=== PATIENT | female | born 1990 | race American Indian/Alaskan Native ===

== ENCOUNTER 2019-03-11 06:18 | Inpatient (IN) | payer MEDICAID, OTHER ==
[2019-03-11] MEDS ORDERED: LACTATED RINGERS 1,000 ML ONE (08:43)
[2019-03-11 08:48] LABS: Hemoglobin 12.1 gm/dl (10.1-14.3); Mean Corpuscular HGB Conc 34 % (30-34); Mean Corpuscular Volume 94 fl (79-97); Platelet Count 311 K/mm3 (140-440); Red Blood Count 3.84 M/mm3 (3.65-5.03)
[2019-03-11] MEDS: LACTATED RINGERS 1,000 ML IV SCH ×3 (08:49→10:53)
[2019-03-11] MEDS ORDERED: AMPICILLIN/NS 2 GM/100 ML 2 GM/100 ML BAG IV ONE (09:00)
[2019-03-11] MEDS ORDERED: SUBLIMAZE ONE (09:16)
--- NOTE | 2019-03-11 09:17 | History and Physical Report ---
History of Present Illness Date of examination: 03/11/19 Date of admission: 03/11/19 08:31 Chief complaint: SIUP at 40 weeks and 3 days in active labor. History of present illness: Patient is a 28 year old , LMP , EDC 03/08/19 at 40 weeks and 3 days gestation who presented to triage complaining of having contractions since about 3 AM. She denies any fluid leakage or bleeding. She reports good movement. In triage, she had one late deceleration which recovered to normal baseline of 140 bpm and good olhy-ct-lueh variability. tracing has since been reactive. Cervix: 4 cm/100%/-1 to -2. AROM performed, + meconium fluid. She is a patient of [facility]. Her records are not available. She denies any medical history. GBS unknown. Past History Past Surgical History: no surgical history Family/Genetic History: none Social history: no significant social history - Obstetrical History Expected Date of Delivery: 03/08/19 Actual Gestation: 40 Week(s) 3 Day(s) : 2 Para: 1 Number of Living Children: 1 Medications and Allergies Allergies Allergy/AdvReac Type Severity Reaction Status Date / Time No Known Allergies Allergy Verified 08/31/18 22:07 Home Medications Medication Instructions Recorded Confirmed Last Taken Type Ondansetron [Zofran Odt] 4 mg PO Q8H PRN #15 tab.rapdis 09/01/18 03/11/19 Unknown Rx Vit-Fe Fumar-FA [ 1 tab PO QDAY MDD 1 03/11/19 03/11/19 03/10/19 09:00 History Vitamin] 325 Active Meds: Active Medications Lactated Ringer's (Lactated Ringers) 1,000 mls @ 125 mls/hr IV DIRECT RAFAEL Last Admin: 03/11/19 08:49 Dose: 125 mls/hr Documented by: Ampicillin Sodium (Polycillin/Ns 2 Gm/100 Ml) 2 gm in 100 mls @ 100 mls/hr IV ONCE ONE; Protocol Stop: 03/11/19 09:59 Last Admin: 03/11/19 08:49 Dose: 100 mls/hr Documented by: - Vital Signs Vital signs: Vital Signs Temp Pulse BP 97.5 F L 90 117/67 03/11/19 06:38 03/11/19 06:38 03/11/19 06:38 Temp Pulse Resp BP Pulse Ox 97.5 F L 97 H 117/67 97 03/11/19 06:38 03/11/19 08:06 03/11/19 06:38 03/11/19 08:06 - Physical Exam Cardiovascular: Normal S1, Normal S2 Lungs: Positive: Clear to auscultation Vulva: both: normal Adnexa: both: normal Deep Tendon Reflex Grade: Normal +2 - Obstetrical FHR: category 1 Uterine Contraction Monitor Mode: External Cervical Dilatation: 4 Cervical Effacement Percentage: 100 station: -1 Uterine Contraction Pattern: Regular Uterine Contraction Intensity: Strong/Firm Results Result Diagrams: 03/11/19 08:30 Abnormal lab results 03/11/19 Range/Units 08:30 WBC 13.2 H (4.5-11.0) K/mm3 All other labs normal. Assessment and Plan - Patient Problems (1) 40 weeks gestation of Current Visit: Yes Status: Acute (2) Active labor Current Visit: Yes Status: Acute Plan to address problem: Admit to labor floor. IV hydration. Routine admitting and labs. IV ampicillin for GBS prophylaxis. and toco monitoring. Anticipate . (3) GBS screening not performed Current Visit: Yes Status: Acute Plan to address problem: IV ampicillin. (4) Meconium in amniotic fluid Current Visit: Yes Status: Acute
[2019-03-11] MEDS ORDERED: PITOCin/NS 30 UNIT/500ML 30 UNITS/500 ML BAG IV SCH (10:00)
[2019-03-11] MEDS ORDERED: LACTATED RINGERS 1,000 ML IV SCH (10:00)
[2019-03-11] MEDS ORDERED: PITOCin/NS 20 UNIT/1000ML DRIP 20 UNITS/1,000 ML BAG IV SCH (10:00)
--- NOTE | 2019-03-11 10:29 | Anesthesia Consultation ---
Anesthesia Consult and Med Hx Date of service: 03/11/19 - Airway Anesthetic Teeth Evaluation: Good ROM Head & Neck: Adequate Mental/Hyoid Distance: Adequate Mallampati Class: Class II Intubation Access Assessment: Probably Good - Pulmonary Exam CTA: Yes - Cardiac Exam Cardiac Exam: RRR - Pre-Operative Health Status ASA Pre-Surgery Classification: ASA2 Proposed Anesthetic Plan: Epidural, Spinal - Pulmonary Hx Smoking: No Hx Asthma: No Hx Respiratory Symptoms: No SOB: No COPD: No Home Oxygen Therapy: No Hx Pneumonia: No Hx Sleep Apnea: No - Cardiovascular System Hx Hypertension: No Hx Coronary Artery Disease: No Hx Heart Attack/AMI: No Hx Angina: No Hx Percutaneous Transluminal Coronary Angioplasty (PTCA): No Hx Cardia Arrhythmia: No Hx Pacemaker: No Hx Internal Defibrillator: No Hx Valvular Heart Disease: No Hx Heart Murmur: No Hx Peripheral Vascular Disease: No - Central Nervous System Hx Neuromuscular Disorder: No Hx Seizures: No CVA: No Hx Back Pain: Yes Hx Psychiatric Problems: No - Gastrointestinal Hx Ulcer: No Hx Gastroesophageal Reflux Disease: Yes - Endocrine Hx Renal Disease: No Hx End Stage Renal Disease: No Hx Cirrhosis: No Hx Liver Disease: No Hx Insulin Dependent Diabetes: No Hx Non-Insulin Dependent Diabetes: No Hx Thyroid Disease: No Hx Hypothyroidism: No Hx Hyperthyroidism: No - Hematic Hx Anemia: No Hx Sickle Cell Disease: No - Other Systems Hx Alcohol Use: No Hx Substance Use: No Hx Cancer: No
--- NOTE | 2019-03-11 10:29 | Anesthesia Day of Surgery ---
Anesthesia Day of Surgery - Day of Surgery Patient Examined: Yes Patient H&P Reviewed: Yes Patient is NPO: Yes Beta Blockers: No Cardiac Clearance: No Pulmonary Clearance: No Alexander's Test: N/A
[2019-03-11] MEDS ORDERED: fentaNYL-BUPIV 2 MCG/ML-0.125% 200 MCG/100 ML BAG EPIDURAL SCH (10:30)
[2019-03-11] MEDS ORDERED: NARCAN 2 MG/2 ML IV PRN (10:30)
[2019-03-11] MEDS ORDERED: ZOFRAN IV PRN ×2 (10:30→13:12)
[2019-03-11] MEDS ORDERED: MINERAL OIL PO PRN (10:30)
[2019-03-11] MEDS ORDERED: XYLOCAINE 2% INFILTRATI NR (10:30)
--- NOTE | 2019-03-11 10:30 | Post Anesthesia Evaluation ---
- Post Anesthesia Evaluation Patient Participated: Yes Airway Patent: Yes Stable Respiratory Function: Yes Nausea/Vomiting: No Temp > 96.8F: Yes Pain Manageable: Yes Adequeate Hydration: Yes Anesthesia Complications: No Block Receding Appropriately: Yes Patient on Ventilator: No
[2019-03-11] MEDS ORDERED: BRETHINE IVP PRN (11:30)
[2019-03-11] MEDS ORDERED: BRETHINE SUB-Q PRN (11:30)
--- NOTE | 2019-03-11 13:07 | Procedure Note ---
OB Delivery Note - Delivery Date of Delivery: 03/11/19 (12:27) Surgeon: SEBASTIAN PENALOZA (JIMMIE) Estimated blood loss: 200cc - Vaginal Delivery presentation: vertex Delivery position: OA Intrapartum events: meconium (Light) Delivery induction: none Delivery monitor: external FHT, external uterine Route of delivery: (12:27) Delivery placenta: spontaneous (12:33) Delivery cord: 3 umbilical vessels Episiotomy: none Delivery laceration: other (small left periurethral ) Delivery repair: vicryl (2-0 SH) Anesthesia: epidural Delivery comments: viable male BELEN position over intact perineum at 12:27. NICU and RT present at RW d/t light meconium. Immediate spontaneous lust cry noted. Vigorous placed [id number] on maternal abdomen. Delayed cord clamping, cut by FOB with my guidance. Cord blood collected. Spontaneous rodriguez delivery of intact placenta at 12:33. FF@U-2. Bleeding small. Left periurethral lacer ation repaired with 2-0 Vicryl on SH under epidural anesthesia. Pt tolerated well. EBL 200cc. Infant and mother left in stable condition in L&D. - Infant A at 1 minute: 8 at 5 minutes: 9 Infant Gender: Male (3921 grams, 8lbs 10oz, 20")
[2019-03-11] MEDS ORDERED: PHENERGAN PR PRN (13:12)
[2019-03-11] MEDS ORDERED: TYLENOL PO PRN (13:12)
[2019-03-11] MEDS ORDERED: BENADRYL PO PRN (13:12)
[2019-03-11] MEDS ORDERED: MILK OF MAGNESIA PO PRN (13:12)
[2019-03-11] MEDS ORDERED: LANSINOH TP PRN (13:12)
[2019-03-11] MEDS ORDERED: TUCKS PAD TP PRN (13:12)
[2019-03-11] MEDS ORDERED: NORCO 5/325 PO PRN (13:12)
[2019-03-11] MEDS ORDERED: PHENERGAN PO PRN (13:12)
[2019-03-11] MEDS ORDERED: DULCOLAX PR PRN (13:12)
[2019-03-11] MEDS ORDERED: SODIUM CHLORIDE FLUSH SYRINGE 10 ML IV SCH (14:00)
[2019-03-11] MEDS: IBUPROFEN PO SCH ×2 (18:00→23:14)
[2019-03-12 01:04] LABS: Hematocrit 30.2 % (30.3-42.9)
[2019-03-12] MEDS: IBUPROFEN PO SCH ×2 (05:23→13:58)
--- NOTE | 2019-03-12 09:02 | Progress Note ---
Assessment and Plan - Patient Problems (1) Status post normal vaginal delivery Current Visit: Yes Status: Acute Plan to address problem: PPD 1 - stable Continue routine PP orders Discharge to home later today Follow up at [facility] as needed or in 6 weeks for exam (2) Anemia due to blood loss, acute Current Visit: Yes Status: Acute Plan to address problem: Asymptomatic Iron therapy initiated Subjective - Subjective Date of service: 03/12/19 Principal diagnosis: PPD #1; s/p Interval history: see H&P and OB Delivery Procedure Note Patient reports: appetite normal, voiding normally, pain well controlled, ambulating normally, no dizzy ambulation [place]: doing well, nursing well Objective - Vital Signs Latest vital signs: Vital Signs Temp Pulse Resp BP BP Pulse Ox 03/12/19 05:23 20 03/11/19 23:38 98.5 F 83 20 102/50 98 03/11/19 23:14 20 03/11/19 19:53 98.6 F 101 H 20 103/55 97 03/11/19 19:49 98.6 F 102 H 20 98/48 97 03/11/19 18:00 18 03/11/19 16:29 98.3 F 97 H 18 107/50 97 03/11/19 14:20 98.9 F 71 20 113/78 03/11/19 13:52 82 121/59 03/11/19 13:42 88 119/58 03/11/19 13:27 86 111/58 03/11/19 13:12 96 H 108/55 03/11/19 12:57 94 H 108/57 03/11/19 12:51 90 112/55 03/11/19 12:43 85 113/53 03/11/19 12:28 112 H 132/88 03/11/19 12:13 100 H 128/88 03/11/19 12:04 108 H 98 03/11/19 11:59 96 H 99 03/11/19 11:57 92 H 111/61 03/11/19 11:54 101 H 99 03/11/19 11:49 100 H 99 03/11/19 11:44 97 H 113/55 03/11/19 11:43 98 H 100 03/11/19 11:39 95 H 100 03/11/19 11:33 99 H 100 03/11/19 11:29 84 126/60 100 05 11:24 99 H 100 05 11:19 97 H 100 05 11:15 98.8 F 16 03/11/19 11:14 92 H 100 05 11:13 93 H 122/59 03/11/19 11:09 84 100 03/11/19 11:04 85 100 05 10:59 83 115/53 100 03/11/19 10:54 86 100 03/11/19 10:49 91 H 100 05 10:44 85 109/56 100 03/11/19 10:39 85 100 03/11/19 10:34 89 100 03/11/19 10:29 77 100 03/11/19 10:26 95 H 104/61 03/11/19 10:25 100 H 115/54 03/11/19 10:24 83 99 03/11/19 10:22 90 126/64 03/11/19 10:20 99 H 104/58 03/11/19 10:19 95 H 100 03/11/19 10:18 96 H 105/60 03/11/19 10:16 93 H 110/59 03/11/19 10:14 110 H 103/57 100 03/11/19 10:12 103 H 95/61 03/11/19 10:10 106 H 123/63 03/11/19 10:09 107 H 99 03/11/19 10:08 103 H 128/67 03/11/19 10:06 106 H 125/66 03/11/19 10:04 105 H 122/71 98 03/11/19 10:02 104 H 126/72 03/11/19 10:00 106 H 124/76 03/11/19 09:58 98 H 126/75 99 03/11/19 09:56 100 H 135/85 05 09:54 101 H 139/88 03/11/19 09:53 103 H 100 03/11/19 09:52 104 H 127/90 03/11/19 09:50 105 H 124/71 03/11/19 09:48 108 H 100 Intake and Output 03/11/19 03/12/19 05 23:59 07:59 15:59 Intake Total 240 Output Total 1600 Balance -1600 240 Intake: Oral 240 Output: Urine 1600 Void 1600 Other: Total, Intake Amount 240 Total, Output Amount 750 # Voids Void 1 1 - Exam Abdomen: Present: normal appearance, soft Vulva: both: laceration/episiotomy (well approximated) Uterus: Present: normal, firm, fundal height below umbilicus Extremities: Present: normal Comments: small lochia - Labs Labs: Abnormal lab results 03/12/19 Range/Units 00:53 Hgb 10.0 L (10.1-14.3) gm/dl Hct 30.2 L (30.3-42.9) %
--- NOTE | 2019-03-12 09:07 | Discharge Summary ---
Providers - Providers Date of Admission: 03/11/19 08:31 Date of discharge: 03/12/19 Attending physician: HOMAR CISNEROS Primary care physician: HOMAR CISNEROS Hospitalization Reason for admission: active labor, IUP at term Delivery: Episiotomy: none Laceration: other (left periurethral) Other procedures: none complications: none Discharge diagnosis: IUP at term delivered baby: male Hospital course: Uncomplicated Condition at discharge: Stable Disposition: [place]-01 TO HOME OR SELFCARE - Discharge Diagnoses (1) Status post normal vaginal delivery Status: Acute (2) Anemia due to blood loss, acute Status: Acute Comment: Asymptomatic Continue iron therapy Plan - Discharge Medications Prescriptions: Ferrous Sulfate [Feosol 325 MG tab] 325 mg PO BID #60 tablet - Provider Discharge Summary Activity: routine, no sex for 6 weeks, no heavy lifting 4 weeks, no strenuous exercise Diet: routine Instructions: routine Additional instructions: [] Smoking cessation referral if applicable(refer to patient education folder for contact #) [] Refer to [facility] Booklet Call your doctor immediately for: * Fever > 100.5 * Heavy vaginal bleeding ( >1 pad per hour) * Severe persistent headache * Shortness of breath * Reddened, hot, painful area to leg or breast * Drainage or odor from incision. * Keep incision clean and dry at all times and follow doctor's instructions regarding bathing/showering - Follow up plan Follow up: HOMAR CISNEROS MD [Primary Care Provider] - 6 Weeks (Follow up at [facility] as needed or in 6 weeks for exam)
[2019-03-12] MEDS ORDERED: FEOSOL PO SCH (10:00)
[2019-03-12 17:34] VITALS: BP 99/58
== END 2019-03-12 18:30 | disposition home or self-care (01) | DRG 775 ==
LOC: TRG 06:18 → LD 08:31 → OB 14:39
PROVIDERS: ADMIT Obstetrics & Gynecology; ATTEND Obstetrics & Gynecology
PROC: 10E0XZZ Delivery of Products of Conception, External Approach (ICD-10-PCS; principal; 2019-03-11)
PROC: 0UQMXZZ Repair Vulva, External Approach (ICD-10-PCS; 2019-03-11)
PROC: 10907ZC Drainage of Amniotic Fluid, Therapeutic from Products of Conception, Via Natural or Artificial Opening (ICD-10-PCS; 2019-03-11)
PROC: 3E0R3BZ Introduction of Anesthetic Agent into Spinal Canal, Percutaneous Approach (ICD-10-PCS; 2019-03-11)
PROC: 00HU33Z Insertion of Infusion Device into Spinal Canal, Percutaneous Approach (ICD-10-PCS; 2019-03-11)
DX: O77.0 Labor and delivery complicated by meconium in amniotic fluid (principal); O71.82 Other specified trauma to perineum and vulva; O99.02 Anemia complicating childbirth; D62 Acute posthemorrhagic anemia; Z3A.40 40 weeks gestation of pregnancy; Z37.0 Single live birth
CPT/HCPCS: 36415; 85014; 85018; 85027; 86592; 86850; 86900; 86901; G0378; A6250; J0290; J2590; J3010; J7120